=== PATIENT | male | born 1990 ===

== ENCOUNTER 2023-01-02 13:41 | Outpatient (CLI) | payer MEDICAID, SELFPAY | END 2023-01-02 13:42 | disposition home or self-care (01) | PROVIDERS: PCP Family Medicine; Visit Provider Family Medicine | DX: Z79.899 Other long term (current) drug therapy (principal) | CPT/HCPCS: 80053; 80061 ==

== ENCOUNTER 2023-01-05 16:15 | Outpatient (RCR) | payer MEDICAID, SELFPAY ==
--- NOTE | 2022-12-23 14:40 | PT.OPE ---
[facility] Start: 12/22/22 17:06 Freq: Status: Active Protocol: Document 12/22/22 17:06 ELLIOTT (Rec: 12/22/22 17:07 ELLIOTT [id number]) E-signed By Tom Torrez DPT, MS Physical Therapy Outpatient Evaluation Insurance Information Recert Due Date 02/20/23 Insurance Name Medicaid,are Medical Diagnosis Patellofemoral disorders, right knee Treating Diagnosis R knee pain, decreased R LE flexibility, gait dysfunction and B (R>L) LE weakness Subjective Subjective Pt presents to PT with c/o chronic R medial knee pain ~6- 7 years ago after a strenuous plyometric workout. Sxs began after performing quite a few box jumps and landings at waist height with severe pain the next morning upon waking. Stopped working out and has only been to the gym a few times since. 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 Knee occasionally feels like it will give way while carrying heavy objects. Has had the past few weeks off work after being hospitalized during a mental health crisis and was instructed to be off for at least 2-3 additional weeks to adjust to new medications. Sxs have improved with rest over the past few weeks but he is concerned they will reoccur when he returns to work. Also describes severe , sharp R hand pain, numbness and tingling just medial to his thumb which he believes is due to a previous wrist fx when he was 13 and due to removing roof shingles for years. Will have a future EMG and further imaging to investigate his hand since this leads to severe pain with gripping, limiting his ability to perform his job duties. Describes ?the pain being so severe I?ve wanted to chop my hand off or cut it open to figure out what is wrong,? but is happy he has health insurance to address this. Denies plans or recent thoughts to self-harm or attempt self-surgical procedures. Pt is on medication for significant bipolar disorder with several previous hospitalization. AGGR factors: descending stairs, standing >20 min, walking, jogging, jumping. ALLEV factors: movement, rest. Pt hopes to return to working out at the gym and performing all work duties without pain. Pain Comments 0-7/10 Current Work Status Supervisor [employer],Short Term Disability Occupation Off work next 3-4 weeks due to mental health Preferred Name [facility] Therapy Limitations/Systems Review Not Limited Assessment Assessment/Impression Pt displays signs and symptoms consistent with R patellofemoral pain syndrome. + R patellar grind testing with sx recreation. B (R>L) quad weakness along with significant R glute weakness found with testing. B hamstring tightness also appears to be contributing to sxs. Emphasized importance of increased B LE strength and endurance due to the demanding nature of his job, encouraged pt to return to working out at the gym. He responded well to biking, stretching and strengthening exercises with minimal pain with amb following today?s session. He would benefit from continued skilled therapy to address these limitations. Primary Functional Limitations Descending stairs, standing > 20 min, walking, jogging, jumping. Plan of Care Rehabilitation Potential Excellent Physical Therapy Goals Short-term goals to be completed in 4 weeks: 1. Pt will report improved R knee pain <3/10 with standing >20 min to improve jassi to work duties. 2. Pt will return to attending the gym 3-4x per week to improve B LE strength and endurance. Long-term goals to be completed in 10 weeks: 1. Pt will be independent and compliant with HEP 2. Pt will display improved R hip flex, ABD and ext of 5/5 in order to improve quality of gait. 3. Pt will display improved mechanics going up<>down >8 stairs with a reciprocal pattern using 1 railing to safely reach their bedroom. 4. Pt will report no elevation in R knee pain for >3 consecutive work days. Coordination/Communication With Referral Source Treatment Plan/Direct Interventions Manual Therapy,Neuromuscular Re-ed,Therapeutic Exercises Frequency/Duration 1x per week for at least 6-10 visits, decreasing visit frequency as able. Patient Will Be Discharged From Therapy Completion of LTG(s),Skills Plateau,Independent w/HEP, Independently Progressing Evaluation Billing Untimed Code Treatment Minutes 25 Complexity Moderate Certification Information Initial Certification Date 12/22/22 Ending Certification Date 02/20/23 Provider Signature Shows Agreement With POC & Medical Necessity Physician Signature & Date Requested Please Sign/Date Here Physician Comment/Change : Physician NPI Number #
== END 2023-04-20 15:54 | disposition home or self-care (01) ==
PROVIDERS: PCP Family Medicine; Visit Provider Orthopaedic Surgery
DX: M22.2X1 Patellofemoral disorders, right knee (principal); M25.561 Pain in right knee; R26.9 Unspecified abnormalities of gait and mobility; M62.81 Muscle weakness (generalized); Z51.89 Encounter for other specified aftercare
CPT/HCPCS: 97110; 97140; 97162

== ENCOUNTER 2023-02-16 22:24 | Outpatient (REF) | payer MEDICAID, SELFPAY ==
[2023-02-16 23:00] LABS: Cholesterol* 209 mg/dL (90-199); Glucose* 78 mg/dL (60-115); Triglycerides* 254 mg/dL (40-149)
[2023-02-16 23:01] LABS: HDL Cholesterol* 47 mg/dL (>=40); LDL Cholesterol Calculated 111 mg/dL (<100)
[2023-02-16 23:04] LABS: Hemoglobin A1C* 5.1 % (0-5.6)
== END 2023-02-16 22:25 | disposition home or self-care (01) ==
LOC: NPINS 22:24
PROVIDERS: PCP Family Medicine
DX: Z79.899 Other long term (current) drug therapy (principal); F31.9 Bipolar disorder, unspecified; F29 Unspecified psychosis not due to a substance or known physiological condition; F44.5 Conversion disorder with seizures or convulsions; Z13.6 Encounter for screening for cardiovascular disorders; Z13.1 Encounter for screening for diabetes mellitus
CPT/HCPCS: 80061; 82947; 83036